=== PATIENT | female | born 1935 | race Caucasian/White ===

== ENCOUNTER 2017-08-19 08:55 | Inpatient (IN) | payer OTHER, BC ==
--- NOTE | 2017-08-19 10:02 | PDOC ---
History of Present Illness - General Chief Complaint: Shortness of Breath Stated Complaint: SOB Time Seen by Provider: 08/19/17 09:01 History Source: Patient Exam Limitations: No Limitations - History of Present Illness Initial Comments: 08/19/17 10:02 The patient is an 81F with a PMH of HTN, a-fib on eliquis, and HLD who presents to the ER with complaints of SOB. The patient states that since yesterday, she' s felt very short of breath both on exertion and laying down. She says this is new for her and has not happened in the past. She denies any CP, fever, chills, but states that the shortness of breath is associated with abdominal pain, which is located in her epigastrium and does not radiate. She also says she's had a decrease in her appetite and feels mildly nauseous but has not vomited. Past History - Past Medical History Allergies/Adverse Reactions: Allergies Allergy/AdvReac Type Severity Reaction Status Date / Time No Known Drug Allergies Allergy Verified 08/19/17 09:01 Home Medications: Ambulatory Orders Quinapril HCl [Accupril -] 10 mg PO DAILY 01/27/13 Apixaban [Eliquis -] 5 mg PO BID 08/19/17 Carvedilol 3.125 mg PO BID 08/19/17 Cholecalciferol (Vitamin D3) [Vitamin D3 -] 2,000 unit PO DAILY 08/19/17 Cyanocobalamin [Vitamin B12 -] 1,000 mcg PO DAILY 08/19/17 Folic Acid/Multivit,Iron,[place] [Centrum Chewable Tablet] 1 each PO DAILY Lovastatin 10 mg PO HS 08/19/17 Anemia: No Asthma: No Cancer: Yes (UTERINE CANCER) Cardiac Disorders: Yes (ATRIAL FIBRILLATION) CVA: No COPD: No CHF: No DVT: No Dementia: No Diabetes: Yes (LATENT DM) GI Disorders: No Disorders: No HTN: Yes Hypercholesterolemia: Yes Liver Disease: No Seizures: No Thyroid Disease: No - Surgical History Abdominal Surgery: No Appendectomy: No Cardiac Surgery: No Cholecystectomy: Yes Lung Surgery: No Neurologic Surgery: No Orthopedic Surgery: Yes (HIP REPLACEMENT RT) - Suicide/Smoking/Psychosocial Hx Smoking History: Never smoked Have you smoked in the past 12 months: No Information on smoking cessation initiated: No Hx Alcohol Use: No Drug/Substance Use Hx: No Substance Use Type: None Hx Substance Use Treatment: No Review of Systems - Review of Systems Able to Perform ROS?: Yes Comments:: 08/19/17 10:11 GENERAL/CONSTITUTIONAL: No fever or chills. No weakness. HEAD, EYES, EARS, NOSE AND THROAT: No change in vision. No ear pain or discharge. No sore throat. CARDIOVASCULAR: No chest pain, palpitations, or lightheadedness. RESPIRATORY: Positive for shortness of breath and orthopnea. No cough, wheezing , or hemoptysis. GASTROINTESTINAL: Positive for nausea and abdominal pain. No vomiting, diarrhea or constipation. GENITOURINARY: No dysuria, frequency, hematuria, or change in urination. MUSCULOSKELETAL: No joint or muscle swelling or pain. No neck or back pain. SKIN: No rash or lesions. NEUROLOGIC: No headache, numbness, tingling, weakness, loss of consciousness, or change in strength/sensation. ENDOCRINE: No increased thirst. No abnormal weight change. HEMATOLOGIC/LYMPHATIC: No anemia, easy bleeding, or history of blood clots. ALLERGIC/IMMUNOLOGIC: No hives or skin allergy. Is the patient limited Bengali proficient: No *Physical Exam - Vital Signs Last Vital Signs Temp Pulse Resp BP Pulse Ox 98.3 F 103 H 22 154/113 95 08/19/17 09:01 08/19/17 09:01 08/19/17 09:01 08/19/17 09:01 08/19/17 09:01 - Physical Exam Comments: 08/19/17 10:12 GENERAL: Well developed, well nourished. Awake and alert. No acute distress. HEENT: Normocephalic, atraumatic. Hearing grossly normal. Moist mucous membranes. PERRLA, EOMI. No conjunctival pallor. Sclera are non-icteric. NECK: Supple. Full ROM. No JVD. CARDIOVASCULAR: Regular rate and rhythm. No murmurs, rubs, or gallops. PULMONARY: No evidence of respiratory distress. Lungs clear to auscultation bilaterally. No wheezing, rales or rhonchi. ABDOMINAL: Soft. Non-tender. Non-distended. No rebound or guarding. GENITOURINARY: No CVA tenderness bilaterally. MUSCULOSKELETAL: Normal range of motion at all joints. No bony deformities or tenderness. EXTREMITIES: No cyanosis. No clubbing. No edema. No calf tenderness. SKIN: Warm and dry. Normal capillary refill. No rashes. No jaundice. NEUROLOGICAL: Alert, awake, appropriate. Cranial nerves 2-12 intact. Normal speech. Gait is normal without ataxia. PSYCHIATRIC: Cooperative. Good eye contact. Appropriate mood and affect. ED Treatment Course - LABORATORY CBC & Chemistry Diagram: 08/19/17 10:45 08/19/17 10:45 - RADIOLOGY Radiology Studies Ordered: Category Date Time Status CHEST X-RAY PORTABLE* [RAD] Stat Radiology 08/19/17 09:58 Ordered Medical Decision Making - Medical Decision Making 08/19/17 10:13 The patient is an 81F with a PMH of HTN, HLD, a-fib on eliquis, who presents to the ER with complaints of SOB. She had a negative exam except for trace edema in her legs, no unilateral calf swelling but I am still concerned for PE vs CHF as the patient has LEDBETTER and orthopnea and is not an active person. Pending labs and imaging. Will monitor closely. 08/19/17 11:55 Labs WNL except for elevated BNP. CXR showing questionable vascular congestion. Paged Dr. Chavis for recs. 08/19/17 12:27 Flu negative. I have spoken to Dr. Chavis who suggests looking for sources of infection. CXR and UA negative for infectious process. Giving 40 IV lasix for symptomatic treatment and will reassess. 08/19/17 19:09 CTAP reveals b/l pleural effusions. Dr. Yusuf accepts admission for a med/surg bed. *DC/Admit/Observation/Transfer Diagnosis at time of Disposition: CHF (congestive heart failure) Qualifiers: Congestive heart failure type: unspecified Congestive heart failure chronicity : unspecified Qualified Code(s): I50.9 - Heart failure, unspecified - Discharge Dispostion Condition at time of disposition: Stable Admit: Yes - Referrals Referrals: Endy Pantoja MD [Primary Care Provider] - - Patient Instructions - Post Discharge Activity
--- NOTE | 2017-08-19 10:07 | PDOC ---
Attending Attestation - Resident Resident Name: Seven Dang - ED Attending Attestation I have performed the following: I have examined & evaluated the patient, The case was reviewed & discussed with the resident, I agree w/resident's findings & plan, Exceptions are as noted - HPI HPI: 08/19/17 10:21 81y F hx of afib on eqilquis, htn, hld, presents with a few days of sob since yesterday, worse with exertion. Pt denies cp, but endorses a mild abd pain thathas been going on for a few weeks blue tis worse with eating. She has had a poor appetitie the past few weeks. she also endorses weightloss over the past year or so 145-130lb. Pt endorses some nausea but without vomiting. denies any dysuria, hematuria, diarrhea, bpr, melena. GENERAL: The patient is awake, alert, and fully oriented, Nontoxic - in no acute distress. HEAD: Normocephalic, atraumatic. EYES: extraocular movements intact, sclera anicteric, conjunctiva clear. ENT: Normal voice, Moist mucous membranes. NECK: Normal range of motion, supple LUNGS: Breath sounds equal, clear to auscultation bilaterally. No wheezes, no rhonchi, no rales. HEART: irregular ABDOMEN: Soft, nontender, normoactive bowel sounds. No guarding, no rebound. . No CVA tenderness EXTREMITIES: Normal range of motion, no edema. neg homans sign NEUROLOGICAL: No facial assymetry, Normal speech, PSYCH: Normal mood, normal affect. SKIN: Warm, Dry, normal turgor, ddx - pna, chf, acs, pancreatitis, ?pe (though less likely as she is already on ac) will ck labs, cxr, ekg will put pt on cardiac tech will reassess - Physicial Exam PE: 08/20/17 08:09 see above - Medical Decision Making 08/19/17 13:17 elevated BNP labs otherwise unremarkble will give a dose of lasix will erass 08/19/17 15:21 pt still feeling generally weak and sob will kim to obs for further management Heart Score/ECG Review - ECG Impressions Comment:: 08/19/17 13:19 Twelve-lead EKG was performed and reviewed by me. irregularly iregular rate of 92 LAFB
[2017-08-19 10:58] LABS: BASO % 0.8 % (0-2.0); EOS % 0.5 % (0-4.5); HEMATOCRIT 43.7 % (32.4-45.2); HEMOGLOBIN 13.9 GM/dL (10.7-15.3); LYMPH % 12.4 % (8-40); MCHC 31.8 g/dl (32.0-36.0); MEAN CELL VOLUME 88.1 fl (80-96); MEAN PLT VOLUME 8.3 fl (7.5-11.1); MONO % 7.4 % (3.8-10.2); NEUT % 78.9 % (42.8-82.8); PLATELET COUNT 219 K/MM3 (134-434); RBC 4.95 M/mm3 (3.60-5.2); RDW 15.7 % (11.6-15.6); WHITE BLOOD COUNT 8.9 K/mm3 (4.0-10.0)
[2017-08-19 11:02] LABS: URINE APPEARANCE CLEAR; URINE BILIRUBIN NEGATIVE (NEGATIVE); URINE BLOOD 2+ (NEGATIVE); URINE COLOR STRAW; URINE GLUCOSE (UA) NEGATIVE (NEGATIVE); URINE KETONE NEGATIVE (NEGATIVE); URINE LEUK ESTERASE NEGATIVE (NEGATIVE); URINE NITRITE NEGATIVE (NEGATIVE); URINE PROTEIN NEGATIVE (NEGATIVE); URINE UROBILINOGEN NEGATIVE mg/dL (0.2-1.0)
[2017-08-19 11:11] LABS: INR 1.66 (0.82-1.09); PROTHROMBIN TIME (PATIENT) 18.8 SEC (9.98-11.88)
[2017-08-19 11:14] LABS: ACTIVATED PTT 37.2 SECONDS (26.9-34.4)
[2017-08-19 11:17] LABS: ALBUMIN 3.8 g/dl (3.4-5.0); ANION GAP 9 (8-16); BILIRUBIN,TOTAL 1.2 mg/dL (0.2-1.0); BLOOD UREA NITROGEN 18 mg/dL (7-18); CALCIUM 9.6 mg/dL (8.5-10.1); CHLORIDE 108 mmol/L (98-107); CO2 24 mmol/L (21-32); GLUCOSE,RANDOM 116 mg/dL (74-106); POTASSIUM 4.1 mmol/L (3.5-5.1); SGOT/AST 26 U/L (15-37); SGPT/ALT 29 U/L (12-78); SODIUM 141 mmol/L (136-145); TOT PROT 8.2 g/dl (6.4-8.2)
[2017-08-19 11:20] LABS: ALK PHOS 82 U/L (45-117); N-TERMINAL BNP 5557.39 pg/ml (5-450)
[2017-08-19 11:23] LABS: EPI CELLS RARE /HPF (FEW)
[2017-08-19 11:26] LABS: LIPASE 222 U/L (73-393)
[2017-08-19] MEDS ORDERED: FUROSEMIDE 40 MG/4 ML INJECTABLE VIAL IVPUSH ONE (11:51)
--- NOTE | 2017-08-19 12:36 | EKG ---
Test Reason : Blood Pressure : / mmHG Vent. Rate : 092 BPM Atrial Rate : 094 BPM P-R Int : 000 ms QRS Dur : 092 ms QT Int : 374 ms P-R-T Axes : 000 -46 066 degrees QTc Int : 462 ms ATRIAL FIBRILLATION WITH PREMATURE VENTRICULAR OR ABERRANTLY CONDUCTED COMPLEXES LEFT ANTERIOR FASCICULAR BLOCK ABNORMAL ECG WHEN COMPARED WITH ECG OF 13-NOV-2007 07:16, ATRIAL FIBRILLATION HAS REPLACED SINUS RHYTHM VENT. RATE HAS INCREASED BY 30 BPM LEFT ANTERIOR FASCICULAR BLOCK IS NOW PRESENT T WAVE VARIATION Confirmed by JASMINE ALEJANDRO MD ([id number]) on 08/19/2017 12:36:17 PM Referred By: Confirmed By:JASMINE ALEJANDRO MD
[2017-08-19] MEDS ORDERED: FUROSEMIDE 40 MG/4 ML INJECTABLE VIAL ONE (12:37)
--- NOTE | 2017-08-19 19:40 | PN ---
Teaching Attending Note Name of Resident: Kenan Sidhu ATTENDING PHYSICIAN STATEMENT I saw and evaluated the patient. I reviewed the resident's note and discussed the case with the resident. I agree with the resident's findings and plan as documented. SUBJECTIVE: 81 F with afib on Eliquis, htn, hld, who presents with shortness of breath since yesterday. Shortness of breath is worse with exertion. Notes clary- epigastric abdominal pain, burning in nature. Also notes dyspnea on exertion. Denies any chest pain or pressure. OBJECTIVE: Physical: Vital Signs Period Temp Pulse Resp BP Sys/Faria Pulse Ox Last 24 Hr 98.3 F-99.2 F 93-103 20-24 134-167/76-113 95-96 GEN: NAD, resting in bed, AA0X3 HEENT: NCAT, PERRL, throat without erythema or exudates CARD: RRR S1, S2 RESP: Bilateral crackles at bases ABD: BSx4, NTD to palpation EXT: +2 Pitting edema CBCD WBC 8.9 K/mm3 (4.0-10.0) 08/19/17 10:45 RBC 4.95 M/mm3 (3.60-5.2) 08/19/17 10:45 Hgb 13.9 GM/dL (10.7-15.3) D 08/19/17 10:45 Hct 43.7 % (32.4-45.2) D 08/19/17 10:45 MCV 88.1 fl (80-96) 08/19/17 10:45 MCHC 31.8 g/dl (32.0-36.0) L 08/19/17 10:45 RDW 15.7 % (11.6-15.6) H 08/19/17 10:45 Plt Count 219 K/MM3 (134-434) D 08/19/17 10:45 MPV 8.3 fl (7.5-11.1) 08/19/17 10:45 CMP Sodium 141 mmol/L (136-145) 08/19/17 10:45 Potassium 4.1 mmol/L (3.5-5.1) 08/19/17 10:45 Chloride 108 mmol/L (98-107) H 08/19/17 10:45 Carbon Dioxide 24 mmol/L (21-32) 08/19/17 10:45 Anion Gap 9 (8-16) 08/19/17 10:45 BUN 18 mg/dL (7-18) 08/19/17 10:45 Creatinine 1.0 mg/dL (0.55-1.02) 08/19/17 10:45 Creat Clearance w eGFR 53.08 (>60) 08/19/17 10:45 Random Glucose 116 mg/dL (74-106) H 08/19/17 10:45 Calcium 9.6 mg/dL (8.5-10.1) 08/19/17 10:45 Total Bilirubin 1.2 mg/dL (0.2-1.0) H 08/19/17 10:45 AST 26 U/L (15-37) 08/19/17 10:45 ALT 29 U/L (12-78) 08/19/17 10:45 Alkaline Phosphatase 82 U/L (45-117) 08/19/17 10:45 Total Protein 8.2 g/dl (6.4-8.2) 08/19/17 10:45 Albumin 3.8 g/dl (3.4-5.0) 08/19/17 10:45 CARDIAC ENZYMES Creatine Kinase 47 IU/L (26-192) 08/19/17 15:11 Troponin I 0.03 ng/ml (0.00-0.05) 08/19/17 15:11 CT ABD/PELVIS: Small- moderate R. Sided small L. sided plueral effusions, Cardiomegaly, small- moderate umbilical hernia containing fat, small stable bilateral adenomas Ambulatory Orders Quinapril HCl [Accupril -] 10 mg PO DAILY 01/27/13 Apixaban [Eliquis -] 5 mg PO BID 08/19/17 Carvedilol 3.125 mg PO BID 08/19/17 Cholecalciferol (Vitamin D3) [Vitamin D3 -] 2,000 unit PO DAILY 08/19/17 Cyanocobalamin [Vitamin B12 -] 1,000 mcg PO DAILY 08/19/17 Folic Acid/Multivit,Iron,[employer] [Centrum Chewable Tablet] 1 each PO DAILY Lovastatin 10 mg PO HS 08/19/17 ASSESSMENT AND PLAN: 81 F with afib on Eliquis, htn, hld, who presents with shortness of breath since yesterday, being admitted for CHF Exacerbation 1.) Acute Congestive Heart Failure - Possibly Systolic- Need Echo to confirm - Daily weight - Strict I/O - Coreg - Echo - Trend Trop/Ekg - Fluid/Na restrict - Lasix IV - Cardio consult 2.) Afib - C/W Eliquis - Coreg 3.) HTN - C/W Home meds 4.) HLD - C/W Statin 5.) Dvt PPx - On Eliquis Place in Med-Sx
[2017-08-19] MEDS ORDERED: PANTOPRAZOLE SODIUM 40 MG VIAL ONE (21:06)
--- NOTE | 2017-08-19 21:08 | HP ---
CHIEF COMPLAINT: SOB PCP: Kit Cardio: Partha HISTORY OF PRESENT ILLNESS: Pt is an 81 y/o F with PMH TN, HLD, AF (elequis), latent DM who presented to ED with 2 days of sob. Pt states she has ad omalley which is resolved by rest. She also states she cannot lay flat for the same time period because of sob. Pt states she went to her die repair on Mon and had her medications adjusted and had an echo done. Among those changes, her lasix were discontinued. Pt also states she has had epigastric pain for the last several weeks. She says it hurst all the time, but is especially bad when she eats. She has been avoiding food and has subsequently lost 30 lbs. ER course was notable for: (1) labs unremarkable (2) CXR with effusions, CT with b/l pleural effusions and cardiomegaly (3) Recent Travel: denies PAST MEDICAL HISTORY: HTN, HLD, Afib (elequis), latent DM, Uterine CA PAST SURGICAL HISTORY: hysterectomy, cholecystectomy, total hip Social History: Smoking: denies Alcohol: denies Drugs: denies Family History: denies Allergies No Known Drug Allergies Allergy (Verified 08/19/17 09:01) HOME MEDICATIONS: Home Medications Medication Instructions Recorded Quinapril HCl [Accupril -] 10 mg PO DAILY 01/27/13 Apixaban [Eliquis -] 5 mg PO BID 08/19/17 Carvedilol 3.125 mg PO BID 08/19/17 Cholecalciferol (Vitamin D3) 2,000 unit PO DAILY 08/19/17 [Vitamin D3 -] Cyanocobalamin [Vitamin B12 -] 1,000 mcg PO DAILY 08/19/17 Folic Acid/Multivit,Iron,[employer] Apprentice 1 each PO DAILY 08/19/17 [Centrum Chewable Tablet] Lovastatin 10 mg PO HS 08/19/17 REVIEW OF SYSTEMS CONSTITUTIONAL: weight loss Absent: fever, chills, diaphoresis, generalized weakness, HEENT: Absent: rhinorrhea, throat pain, throat swelling, difficulty swallowing, s CARDIOVASCULAR: palpitations, irregular heart rate Absent: chest pain, syncope, , lightheadedness, peripheral edema RESPIRATORY: shortness of breath, dyspnea with exertion Absent: cough, orthopnea, wheezing GASTROINTESTINAL: abdominal pain Absent: , abdominal distension, nausea, vomiting, diarrhea, GENITOURINARY: Absent: dysuria, frequency, urgency, hesitancy, MUSCULOSKELETAL: arthralgia Absent: myalgia, , joint swelling, back pain, neck pain SKIN: Absent: rash, itching, pallor HEMATOLOGIC/IMMUNOLOGIC: Absent: easy bleeding, easy bruising, lymphadenopathy, frequent infections ENDOCRINE: Absent: unexplained weight gain, unexplained weight loss, heat intolerance, cold intolerance NEUROLOGIC: Absent: headache, focal weakness or paresthesias, dizziness, unsteady gait, seizure, mental status changes, bladder or bowel incontinence PSYCHIATRIC: Absent: anxiety, depression, suicidal or homicidal ideation, hallucinations. PHYSICAL EXAMINATION Vital Signs - 24 hr 08/19/17 08/19/17 08/19/17 09:01 11:11 12:40 Temperature 98.3 F 99.2 F Pulse Rate 103 H Pulse Rate [ 96 H Right Radial] Respiratory 22 24 Rate Blood Pressure 154/113 Blood Pressure 167/89 [Left Arm] O2 Sat by Pulse 95 96 Oximetry (%) 08/19/17 08/19/17 12:50 18:02 Temperature 98.6 F Pulse Rate Pulse Rate [ 93 H 95 H Right Radial] Respiratory 24 20 Rate Blood Pressure Blood Pressure 134/76 151/82 [Left Arm] O2 Sat by Pulse 96 95 Oximetry (%) GENERAL: Awake, alert, and fully oriented, in no acute distress. HEAD: Normal with no signs of trauma. EYES: Pupils equal, round and reactive to light, extraocular movements intact, sclera anicteric, conjunctiva clear. No lid lag. EARS, NOSE, THROAT: oropharynx clear without exudates. Moist mucous membranes. NECK: Normal range of motion, supple without lymphadenopathy, JVD, or masses. Heart murmur radiation LUNGS: Breath sounds equal, clear to auscultation bilaterally. No wheezes, and no crackles. No accessory muscle use. HEART: Regular rate and rhythm, normal S1 and S2 with systolic blowing 3/6 murmur at RUSB, rub or gallop. ABDOMEN: Soft, nontender, not distended, normoactive bowel sounds, no guarding, no rebound, no masses. No hepatomegaly or splenomegaly. MUSCULOSKELETAL: Normal range of motion at all joints. No bony deformities or tenderness. No CVA tenderness. UPPER EXTREMITIES: 2+ pulses, warm, well-perfused. No cyanosis. No clubbing. No peripheral edema. LOWER EXTREMITIES: 2+ pulses, warm, well-perfused. No calf tenderness. 1+ peripheral edema. NEUROLOGICAL: Cranial nerves II-XII intact. Normal speech. PSYCHIATRIC: Cooperative. Good eye contact. Appropriate mood and affect. SKIN: Warm, dry, normal turgor, no rashes or lesions noted, normal capillary refill. Laboratory Results - last 24 hr 08/19/17 08/19/17 08/19/17 10:45 10:45 10:45 WBC 8.9 RBC 4.95 Hgb 13.9 D Hct 43.7 D MCV 88.1 MCH 28.0 MCHC 31.8 L RDW 15.7 H Plt Count 219 D MPV 8.3 Neutrophils % 78.9 Lymphocytes % 12.4 D Monocytes % 7.4 Eosinophils % 0.5 Basophils % 0.8 PT with INR 18.80 H INR 1.66 H D PTT (Actin FS) 37.2 H Sodium 141 Potassium 4.1 Chloride 108 H Carbon Dioxide 24 Anion Gap 9 BUN 18 Creatinine 1.0 Creat Clearance w eGFR 53.08 Random Glucose 116 H Calcium 9.6 Total Bilirubin 1.2 H AST 26 ALT 29 Alkaline Phosphatase 82 Creatine Kinase 53 Troponin I 0.03 B-Natriuretic Peptide 5557.39 H Total Protein 8.2 Albumin 3.8 Lipase 222 Urine Color Urine Appearance Urine pH Ur Specific [place] Urine Protein Urine Glucose (UA) Urine Ketones Urine Blood Urine Nitrite Urine Bilirubin Urine Urobilinogen Ur Leukocyte Esterase Urine WBC (Auto) Urine RBC (Auto) Ur Epithelial Cells 08/19/17 08/19/17 10:49 15:11 WBC RBC Hgb Hct MCV MCH MCHC RDW Plt Count MPV Neutrophils % Lymphocytes % Monocytes % Eosinophils % Basophils % PT with INR INR PTT (Actin FS) Sodium Potassium Chloride Carbon Dioxide Anion Gap BUN Creatinine Creat Clearance w eGFR Random Glucose Calcium Total Bilirubin AST ALT Alkaline Phosphatase Creatine Kinase 47 Troponin I 0.03 B-Natriuretic Peptide Total Protein Albumin Lipase Urine Color Straw Urine Appearance Clear Urine pH 6.0 Ur Specific [place] 1.004 Urine Protein Negative Urine Glucose (UA) Negative Urine Ketones Negative Urine Blood 2+ H Urine Nitrite Negative Urine Bilirubin Negative Urine Urobilinogen Negative Ur Leukocyte Esterase Negative Urine WBC (Auto) <1 Urine RBC (Auto) 2 Ur Epithelial Cells Rare ASSESSMENT/PLAN: Pt is a pleasant 81 y/o F with PMH HTN, HLD, AF on elequis who presents with signs and symptoms of CHF exacerbation following discontinuation of her lasix. #CHF -daily weights -I/O -Pt states she had an echo at die repair's office on Sat. Cardio consulted -Trop neg x 2 -Na controlled diet #Afib -elequis -coreg #HTN -c/w quinipril #HLD -c/w statin #FEN -fluid restriction -lytes wnl -Na controlled diet #Dispo -Admit to Tele Kenan Sidhu MD PGY-1 IM Visit type - Emergency Visit Emergency Visit: Yes ED Registration Date: 08/19/17 Care time: The patient presented to the Emergency Department on the above date and was hospitalized for further evaluation of their emergent condition. - New Patient This patient is new to me today: Yes Date on this admission: 08/19/17 - Critical Care Critical Care patient: No
[2017-08-19] MEDS: PANTOPRAZOLE SODIUM 40 MG VIAL IVPUSH SCH (21:18)
[2017-08-19] MEDS ORDERED: PATIENT'S OWN MEDICATION (NON-FORMULARY) (Lovastatin [Lovastatin] 10 MG) PO SCH (22:00)
[2017-08-19] MEDS ORDERED: APIXABAN 5 MG TABLET PO SCH (22:00)
[2017-08-19] MEDS ORDERED: CARVEDILOL 3.125 MG TABLET (FP) ONE (22:25)
[2017-08-19] MEDS: CARVEDILOL 3.125 MG TABLET (FP) PO SCH (22:38)
[2017-08-20] MEDS ORDERED: APIXABAN 5 MG TABLET PO SCH (00:10)
[2017-08-20] MEDS: APIXABAN 5 MG TABLET PO SCH ×3 (00:30→21:24)
[2017-08-20 00:48] VITALS: BMI 23.4
[2017-08-20] MEDS ORDERED: METOPROLOL TARTRATE 5 MG/5 ML VIAL IVPUSH ONE (04:20)
[2017-08-20] MEDS ORDERED: CARVEDILOL 3.125 MG TABLET (FP) PO ONE (04:29)
[2017-08-20 08:04] LABS: BASO % 0.9 % (0-2.0); HEMOGLOBIN 13.1 GM/dL (10.7-15.3); LYMPH % 12.3 % (8-40); MCH 28.5 pg (25.7-33.7); MCHC 32.7 g/dl (32.0-36.0); MEAN PLT VOLUME 8.8 fl (7.5-11.1); NEUT % 75.8 % (42.8-82.8); PLATELET COUNT 216 K/MM3 (134-434); RBC 4.59 M/mm3 (3.60-5.2); RDW 15.6 % (11.6-15.6); WHITE BLOOD COUNT 8.1 K/mm3 (4.0-10.0)
[2017-08-20 08:13] LABS: CHLORIDE 106 mmol/L (98-107); POTASSIUM 3.6 mmol/L (3.5-5.1); SODIUM 142 mmol/L (136-145)
[2017-08-20 08:17] LABS: ALBUMIN 3.5 g/dl (3.4-5.0); ALK PHOS 75 U/L (45-117); ANION GAP 10 (8-16); BILIRUBIN,TOTAL 1.3 mg/dL (0.2-1.0); BLOOD UREA NITROGEN 21 mg/dL (7-18); CO2 26 mmol/L (21-32); GLUCOSE,RANDOM 106 mg/dL (74-106); MAGNESIUM 2.1 mg/dL (1.8-2.4); PHOSPHOROUS 3.3 mg/dL (2.5-4.9); SGOT/AST 22 U/L (15-37); SGPT/ALT 23 U/L (12-78); TOT PROT 7.2 g/dl (6.4-8.2)
[2017-08-20] MEDS: CHOLECALCIFEROL (VITAMIN D3) 1,000 UNIT TABLET (FP) PO SCH (09:18)
[2017-08-20] MEDS: PANTOPRAZOLE SODIUM 40 MG VIAL IVPUSH SCH (09:18)
[2017-08-20] MEDS: CYANOCOBALAMIN 1,000 MCG TABLET (FP) PO SCH (09:18)
[2017-08-20] MEDS: MULTIVITAMINS THER W-MINERALS COMBO TABLET (FP) PO SCH (09:19)
[2017-08-20] MEDS: CARVEDILOL 3.125 MG TABLET (FP) PO SCH ×2 (09:19→21:48)
[2017-08-20] MEDS ORDERED: POTASSIUM CHLORIDE TABS 20 MEQ TABLET.ER (FP) PO ONE ×2 (10:23→12:45)
[2017-08-20] MEDS ORDERED: KCL 10 MEQ IVPB 10 MEQ/100 ML INFUS.BAG IVPB SCH (10:30)
--- NOTE | 2017-08-20 10:46 | PN ---
Progress Note, Physician Chief Complaint: pt sitting in chair in no acute distress. Reports mild sob, better than yesterday. Pt reports epigastic pain x 2 weeks with poor appetite x 2 months and weightloss >10lbs. - Current Medication List Current Medications: Active Medications Apixaban (Eliquis -) 5 mg PO BID [facility] Last Admin: 08/20/17 09:18 Dose: 5 mg Carvedilol (Coreg -) 3.125 mg PO BID [facility] Last Admin: 08/20/17 09:19 Dose: 3.125 mg Cholecalciferol (Vitamin D3 -) 2,000 unit PO DAILY [facility] Last Admin: 08/20/17 09:18 Dose: 2,000 unit Cyanocobalamin (Vitamin B12 -) 1,000 mcg PO DAILY [facility] Last Admin: 08/20/17 09:18 Dose: 1,000 mcg Multivitamins/Minerals (Theragran-M) 1 each PO DAILY [facility] Last Admin: 08/20/17 09:19 Dose: 1 each Non-Formulary Medication (Lovastatin [Lovastatin]) 10 mg PO [facility] Pantoprazole Sodium (Protonix Iv) 40 mg IVPUSH DAILY [facility] Last Admin: 08/20/17 09:18 Dose: 40 mg Potassium Chloride (K-Dur -) 40 meq PO ONCE ONE Stop: 08/20/17 10:24 Quinapril HCl (Accupril -) 10 mg PO DAILY [facility] - Objective Vital Signs: Vital Signs Temperature 98 F 08/20/17 06:00 Pulse Rate 89 08/20/17 06:00 Respiratory Rate 20 08/20/17 06:00 Blood Pressure 140/67 08/20/17 06:53 O2 Sat by Pulse Oximetry (%) 93 L 08/19/17 23:44 Constitutional: Yes: No Distress, Calm Cardiovascular: Yes: Pulse Irregular, S1, S2 Respiratory: Yes: Regular, Cough, Diminished, Rales (bibasilar) Gastrointestinal: Yes: WNL, Normal Bowel Sounds, Soft. No: Distention, Tenderness Edema: No Neurological: Yes: WNL, Alert, Oriented Psychiatric: Yes: WNL, Alert, Oriented Labs: CBC, BMP 08/20/17 06:30 08/20/17 06:30 INR, PTT INR 1.66 (0.82-1.09) H D 08/19/17 10:45 - ....Imaging Chest X-ray: Report Reviewed Cat Scan: Report Reviewed EKG: Report Reviewed Problem List - Problems (1) CHF (congestive heart failure) Assessment/Plan: chronic, diastolic, reports sob has improved today, followed by outpt lasix 40mg started daily weights Code(s): I50.9 - HEART FAILURE, UNSPECIFIED Qualifiers: Congestive heart failure type: diastolic Congestive heart failure chronicity: acute on chronic Qualified Code(s): I50.33 - Acute on chronic diastolic (congestive) heart failure (2) Pleural effusion Assessment/Plan: b/l small pleural effusions chest xray today shows mildly increasing right pleur effusion continue lasix 40mg daily per cardiology Code(s): J90 - PLEURAL EFFUSION, NOT ELSEWHERE CLASSIFIED (3) Abdominal pain Assessment/Plan: pt reports epigastric pain x 2 weeks, occurs after eating but persistent, + weightloss>10lbs and poor appetite over the last few months, denies N/V/D CT unremarkable continue protonix will monitor Code(s): R10.9 - UNSPECIFIED ABDOMINAL PAIN Qualifiers: Abdominal location: epigastric Qualified Code(s): R10.13 - Epigastric pain (4) HTN (hypertension) Assessment/Plan: stable continue home meds Code(s): I10 - ESSENTIAL (PRIMARY) HYPERTENSION Qualifiers: Hypertension type: essential hypertension Qualified Code(s): I10 - Essential (primary) hypertension (5) Hyperlipidemia Assessment/Plan: stable continue home meds Code(s): E78.5 - HYPERLIPIDEMIA, UNSPECIFIED Qualifiers: Hyperlipidemia type: pure hypercholesterolemia Qualified Code(s): E78.00 - Pure hypercholesterolemia, unspecified; E78.0 - Pure hypercholesterolemia (6) Afib Assessment/Plan: chronic, stable, coagulated on eliquis 2.5mg bid cardiology following Code(s): I48.91 - UNSPECIFIED ATRIAL FIBRILLATION Qualifiers: Atrial fibrillation type: chronic Qualified Code(s): I48.2 - Chronic atrial fibrillation (7) Mitral regurgitation and aortic stenosis Assessment/Plan: valvular disease coagulated on eliquis cardiology following Code(s): I08.0 - RHEUMATIC DISORDERS OF BOTH MITRAL AND AORTIC VALVES
--- NOTE | 2017-08-20 12:34 | CON.CARD ---
Cardiology Consult (text) - Consultation Consultation Note: CC: sob/abd pain 81 yo with h/o diastolic/valvular HF, severe , mod ar, perm afib on eliquis/ coreg (eliquis recently decreased due to change in weight), varicose veins, htn , hl , gerd, oa who p/w sob/abdominal pain. Recently with decreasing torsemide requirement. had been on torsemide 20 mg daily --> decreased to QOD and then with persistently poor appetite/decreasing weights, improved LE edema, and slight worsening of Cr --> further decreased to weekly and prn. had uri last month and mild residual hoarseness but overall improved. sob had also improved, no decrease in exercise capacity. Now with acute worsening of sob, new orthopnea and worsening of abdominal discomfort over the past 3 days. + bloating and pain. - + fatigue, no fevers, - + oa with knee pain limiting ambulation. s/p lasix in ER. orthopnea improved this morning. pmhx/pshx: per hpi social hx: never smoker fam hx: brother with cad ros: per hpi Ambulatory Orders Quinapril HCl [Accupril -] 10 mg PO DAILY 01/27/13 Apixaban [Eliquis -] 2.5 mg PO BID 08/19/17 Carvedilol 3.125 mg PO BID 08/19/17 Cholecalciferol (Vitamin D3) [Vitamin D3 -] 2,000 unit PO DAILY 08/19/17 Cyanocobalamin [Vitamin B12 -] 1,000 mcg PO DAILY 08/19/17 Folic Acid/Multivit,Iron,Technical Support Intern [Centrum Chewable Tablet] 1 each PO DAILY Lovastatin 10 mg PO HS 08/19/17 Current Medications Apixaban (Eliquis -) 5 mg PO BID [facility] Last Admin: 08/20/17 09:18 Dose: 5 mg Carvedilol (Coreg -) 3.125 mg PO BID [facility] Last Admin: 08/20/17 09:19 Dose: 3.125 mg Cholecalciferol (Vitamin D3 -) 2,000 unit PO DAILY [facility] Last Admin: 08/20/17 09:18 Dose: 2,000 unit Cyanocobalamin (Vitamin B12 -) 1,000 mcg PO DAILY [facility] Last Admin: 08/20/17 09:18 Dose: 1,000 mcg Multivitamins/Minerals (Theragran-M) 1 each PO DAILY [facility] Last Admin: 08/20/17 09:19 Dose: 1 each Non-Formulary Medication (Lovastatin [Lovastatin]) 10 mg PO [facility] Pantoprazole Sodium (Protonix Iv) 40 mg IVPUSH DAILY [facility] Last Admin: 08/20/17 09:18 Dose: 40 mg Quinapril HCl (Accupril -) 10 mg PO DAILY [facility] Vital Signs - 24 hr 08/19/17 08/19/17 08/19/17 12:40 12:50 18:02 Temperature 98.6 F Pulse Rate Pulse Rate [ 96 H 93 H 95 H Right Radial] Respiratory 24 24 20 Rate Blood Pressure Blood Pressure 167/89 134/76 151/82 [Left Arm] O2 Sat by Pulse 96 96 95 Oximetry (%) 08/19/17 08/19/17 08/19/17 22:53 23:44 23:45 Temperature 97.6 F 97.7 F Pulse Rate 86 Pulse Rate [ 92 H Right Radial] Respiratory 20 20 Rate Blood Pressure 162/72 Blood Pressure 176/96 [Left Arm] O2 Sat by Pulse 95 93 L Oximetry (%) 08/20/17 08/20/17 08/20/17 00:06 02:11 04:00 Temperature 97.7 F Pulse Rate 86 74 96 H Pulse Rate [ Right Radial] Respiratory 20 20 20 Rate Blood Pressure 162/72 171/96 173/100 Blood Pressure [Left Arm] O2 Sat by Pulse Oximetry (%) 08/20/17 08/20/17 08/20/17 04:19 06:00 06:53 Temperature 98 F Pulse Rate 84 89 Pulse Rate [ Right Radial] Respiratory 20 20 Rate Blood Pressure 189/93 143/84 140/67 Blood Pressure [Left Arm] O2 Sat by Pulse Oximetry (%) 08/20/17 09:00 Temperature 98.4 F Pulse Rate 89 Pulse Rate [ Right Radial] Respiratory 18 Rate Blood Pressure 134/72 Blood Pressure [Left Arm] O2 Sat by Pulse Oximetry (%) Intake & Output 08/18/17 08/19/17 08/20/17 08/21/17 07:59 07:59 07:59 07:59 Intake Total 600 Balance 600 Weight 119 lb 11.2 oz nad, calm jvd flat, neck supple trace bibasilar dullness, nl effort irregularly irregular nl s1, s2 2/6 murmur at sternal border with radiation throughout precordium + bs soft nt nd ext with trace edema, no c/c + varicosities aaox3 no jaundice, diaphoresis CBC, BMP 08/20/17 06:30 08/20/17 06:30 Laboratory Tests 08/19/17 08/19/17 08/20/17 10:45 15:11 06:30 Magnesium 2.1 Total Bilirubin 1.3 H AST 22 ALT 23 Alkaline Phosphatase 75 Creatine Kinase 53 47 Troponin I 0.03 0.03 B-Natriuretic Peptide 5557.39 H Albumin 3.5 Lipase 222 EKG: afib with pvc's. no acute ischemic changes. ct scan images and report reviewed : + bilateral pleural effusions. see emr for full details Recent office echo done last month with progression to severe (from mod). 81 yo with h/o diastolic/valvular HF, severe , mod ar, perm afib on eliquis/ coreg (eliquis recently decreased due to change in weight), varicose veins, htn , hl , gerd, oa who p/w sob/abdominal pain. diastolic/valvular HF/severe /mod AR - had recently decreased diuretic dose in setting of weight loss and poor po intake, but now with sx's of overload and evidence of bilateral pleural effusion on ct scan. Will continue diuresis with lasix 40 mg iV daily. dailly weights, bmp, i/o's - recent progression of as to severe and now also sx. Have had multiple discussions with patient regarding TAVR evaluation. patient will continue to consider but currently not ready. perm afib - recently decreased eliquis dose to 2.5 mg bid b/c weight had dropped. Adjust dose here based on weight. - con't rate control with coreg. may need to uptitrate dose. htn - coreg, quinapril, may need uptitration as mentioned. hl - resume statin
[2017-08-20] MEDS: FUROSEMIDE 40 MG/4 ML INJECTABLE VIAL IVPUSH SCH (12:49)
[2017-08-20] MEDS: QUINAPRIL HCL 10 MG TABLET (FP) PO SCH (12:49)
[2017-08-21 08:13] LABS: HEMATOCRIT 39.3 % (32.4-45.2); MCH 28.6 pg (25.7-33.7); MCHC 33.2 g/dl (32.0-36.0); MEAN CELL VOLUME 86.4 fl (80-96); MEAN PLT VOLUME 8.4 fl (7.5-11.1); PLATELET COUNT 205 K/MM3 (134-434); RBC 4.55 M/mm3 (3.60-5.2); RDW 15.3 % (11.6-15.6); WHITE BLOOD COUNT 8.5 K/mm3 (4.0-10.0)
[2017-08-21 08:41] LABS: ANION GAP 10 (8-16); CALCIUM 8.9 mg/dL (8.5-10.1); CHLORIDE 103 mmol/L (98-107); CO2 28 mmol/L (21-32); POTASSIUM 3.7 mmol/L (3.5-5.1); SODIUM 141 mmol/L (136-145)
[2017-08-21 08:42] LABS: LIPASE 341 U/L (73-393)
[2017-08-21 08:44] LABS: BLOOD UREA NITROGEN 29 mg/dL (7-18); CREATININE 1.2 mg/dL (0.55-1.02); GLUCOSE,RANDOM 88 mg/dL (74-106); MAGNESIUM 2.1 mg/dL (1.8-2.4); PHOSPHOROUS 3.9 mg/dL (2.5-4.9)
[2017-08-21] MEDS ORDERED: PT OWN MED DRAWER 7, Y5N ONE (09:59)
[2017-08-21] MEDS: QUINAPRIL HCL 10 MG TABLET (FP) PO SCH (10:01)
[2017-08-21] MEDS: CHOLECALCIFEROL (VITAMIN D3) 1,000 UNIT TABLET (FP) PO SCH (10:02)
[2017-08-21] MEDS: APIXABAN 5 MG TABLET PO SCH (10:02)
[2017-08-21] MEDS: CARVEDILOL 3.125 MG TABLET (FP) PO SCH ×2 (10:02→22:26)
[2017-08-21] MEDS: CYANOCOBALAMIN 1,000 MCG TABLET (FP) PO SCH (10:02)
[2017-08-21] MEDS: FUROSEMIDE 40 MG/4 ML INJECTABLE VIAL IVPUSH SCH (10:02)
[2017-08-21] MEDS: PANTOPRAZOLE SODIUM 40 MG VIAL IVPUSH SCH (10:02)
[2017-08-21] MEDS: MULTIVITAMINS THER W-MINERALS COMBO TABLET (FP) PO SCH (10:02)
--- NOTE | 2017-08-21 10:43 | PN ---
Progress Note, Physician Chief Complaint: pt sitting in chair in no acute distress. Reports dyspnea with exertion and more fatigue today. Denies any chest pain, sob, n/v/d, abdominal pain - Current Medication List Current Medications: Active Medications Apixaban (Eliquis -) 5 mg PO BID [facility] Last Admin: 08/21/17 10:02 Dose: 5 mg Carvedilol (Coreg -) 3.125 mg PO BID [facility] Last Admin: 08/21/17 10:02 Dose: 3.125 mg Cholecalciferol (Vitamin D3 -) 2,000 unit PO DAILY [facility] Last Admin: 08/21/17 10:02 Dose: 2,000 unit Cyanocobalamin (Vitamin B12 -) 1,000 mcg PO DAILY [facility] Last Admin: 08/21/17 10:02 Dose: 1,000 mcg Furosemide (Lasix Injection -) 40 mg IVPUSH DAILY [facility] Last Admin: 08/21/17 10:02 Dose: 40 mg Multivitamins/Minerals (Theragran-M) 1 each PO DAILY [facility] Last Admin: 08/21/17 10:02 Dose: 1 each Non-Formulary Medication (Lovastatin [Lovastatin]) 10 mg PO [facility] Pantoprazole Sodium (Protonix Iv) 40 mg IVPUSH DAILY [facility] Last Admin: 08/21/17 10:02 Dose: 40 mg Quinapril HCl (Accupril -) 10 mg PO DAILY [facility] Last Admin: 08/21/17 10:01 Dose: 10 mg - Objective Vital Signs: Vital Signs Temperature 98 F 08/21/17 06:00 Pulse Rate 66 08/21/17 06:00 Respiratory Rate 18 08/21/17 06:00 Blood Pressure 136/74 08/21/17 06:00 O2 Sat by Pulse Oximetry (%) 96 08/20/17 21:00 Constitutional: Yes: No Distress, Calm Cardiovascular: Yes: Pulse Irregular, Murmur. No: Gallop, Rub Respiratory: Yes: WNL, Regular, CTA Bilaterally, SOB on Exertion. No: Rhonchi, SOB, Tachypnea, Wheezes Gastrointestinal: Yes: WNL, Normal Bowel Sounds, Soft. No: Distention, Tenderness Extremities: Yes: WNL Edema: Yes Edema: LLE: Trace, RLE: Trace Neurological: Yes: WNL, Alert, Oriented Psychiatric: Yes: WNL, Alert, Oriented Labs: CBC, BMP 02/07/18 06:45 08/21/17 06:45 INR, PTT INR 1.66 (0.82-1.09) H D 08/19/17 10:45 - ....Imaging Chest X-ray: Report Reviewed Problem List - Problems (1) CHF (congestive heart failure) Code(s): I50.9 - HEART FAILURE, UNSPECIFIED Qualifiers: Congestive heart failure type: diastolic Congestive heart failure chronicity: acute on chronic Qualified Code(s): I50.33 - Acute on chronic diastolic (congestive) heart failure (2) Pleural effusion Code(s): J90 - PLEURAL EFFUSION, NOT ELSEWHERE CLASSIFIED (3) Abdominal pain Code(s): R10.9 - UNSPECIFIED ABDOMINAL PAIN Qualifiers: Abdominal location: epigastric Qualified Code(s): R10.13 - Epigastric pain (4) HTN (hypertension) Code(s): I10 - ESSENTIAL (PRIMARY) HYPERTENSION Qualifiers: Hypertension type: essential hypertension Qualified Code(s): I10 - Essential (primary) hypertension (5) Hyperlipidemia Code(s): E78.5 - HYPERLIPIDEMIA, UNSPECIFIED Qualifiers: Hyperlipidemia type: pure hypercholesterolemia Qualified Code(s): E78.00 - Pure hypercholesterolemia, unspecified; E78.0 - Pure hypercholesterolemia (6) Afib Code(s): I48.91 - UNSPECIFIED ATRIAL FIBRILLATION Qualifiers: Atrial fibrillation type: permanent Qualified Code(s): I48.2 - Chronic atrial fibrillation (7) Mitral regurgitation and aortic stenosis Code(s): I08.0 - RHEUMATIC DISORDERS OF BOTH MITRAL AND AORTIC VALVES (8) Hypokalemia Code(s): E87.6 - HYPOKALEMIA (9) DVT prophylaxis Code(s): [id number] - Assessment/Plan (1) CHF (congestive heart failure) Assessment/Plan: acute on chronic, diastolic, reports sob only with exertion today, followed by outpt case discussed with iv lasix reduced to 20mg transition to po tomorrow depending on renal function and fluid status cardiology following daily weights low na diet Code(s): I50.9 - HEART FAILURE, UNSPECIFIED Qualifiers: Congestive heart failure type: diastolic Congestive heart failure chronicity: acute on chronic Qualified Code(s): I50.33 - Acute on chronic diastolic (congestive) heart failure (2) Pleural effusion Assessment/Plan: b/l small pleural effusions chest xray 08/20 shows mildly increasing right pleur effusion lasix 20mg daily per cardiology repeat chest xray tomorrow Code(s): J90 - PLEURAL EFFUSION, NOT ELSEWHERE CLASSIFIED (3) Abdominal pain Assessment/Plan: resolved CT unremarkable continue protonix will monitor Code(s): R10.9 - UNSPECIFIED ABDOMINAL PAIN Qualifiers: Abdominal location: epigastric Qualified Code(s): R10.13 - Epigastric pain (4) HTN (hypertension) Assessment/Plan: stable continue coreg, quinapril Code(s): I10 - ESSENTIAL (PRIMARY) HYPERTENSION Qualifiers: Hypertension type: essential hypertension Qualified Code(s): I10 - Essential (primary) hypertension (5) Hyperlipidemia Assessment/Plan: stable continue home meds Code(s): E78.5 - HYPERLIPIDEMIA, UNSPECIFIED Qualifiers: Hyperlipidemia type: pure hypercholesterolemia Qualified Code(s): E78.00 - Pure hypercholesterolemia, unspecified; E78.0 - Pure hypercholesterolemia (6) Afib Assessment/Plan: chronic, stable, coagulated on eliquis 2.5mg bid rate controlled on coreg cardiology following Code(s): I48.91 - UNSPECIFIED ATRIAL FIBRILLATION Qualifiers: Atrial fibrillation type: chronic Qualified Code(s): I48.2 - Chronic atrial fibrillation (7) Mitral regurgitation and aortic stenosis Assessment/Plan: valvular disease coagulated on eliquis cardiology following Code(s): I08.0 - RHEUMATIC DISORDERS OF BOTH MITRAL AND AORTIC VALVES (8) Hypokalemia Assessment/Plan: k-3.7 po potassium 40meq ordered monitor labs Code(s): E87.6 - HYPOKALEMIA dispo home once transitioned to po diuretic and cleared by cardiology
[2017-08-21] MEDS ORDERED: POTASSIUM CHLORIDE TABS 20 MEQ TABLET.ER (FP) PO ONE (13:14)
--- NOTE | 2017-08-21 17:29 | PN ---
Progress Note (short form) - Note Progress Note: CC: sob/abd pain S: significant improvement in abdominal distension with resulting increase in appetite today. Still with mild orthopnea, (although improved). LE edema resolved. Current Medications Apixaban (Eliquis -) 2.5 mg PO BID [facility] Carvedilol (Coreg -) 3.125 mg PO BID [facility] Last Admin: 08/21/17 10:02 Dose: 3.125 mg Cholecalciferol (Vitamin D3 -) 2,000 unit PO DAILY [facility] Last Admin: 08/21/17 10:02 Dose: 2,000 unit Cyanocobalamin (Vitamin B12 -) 1,000 mcg PO DAILY [facility] Last Admin: 08/21/17 10:02 Dose: 1,000 mcg Docusate Sodium (Colace -) 100 mg PO TID [facility] Furosemide (Lasix Injection -) 20 mg IVPUSH DAILY [facility] Multivitamins/Minerals (Theragran-M) 1 each PO DAILY [facility] Last Admin: 08/21/17 10:02 Dose: 1 each Non-Formulary Medication (Lovastatin [Lovastatin]) 10 mg PO HS [facility] Pantoprazole Sodium (Protonix Iv) 40 mg IVPUSH DAILY [facility] Last Admin: 08/21/17 10:02 Dose: 40 mg Polyethylene Glycol (Miralax (For Daily Use) -) 17 gm PO BID [facility] Quinapril HCl (Accupril -) 10 mg PO DAILY [facility] Last Admin: 08/21/17 10:01 Dose: 10 mg Vital Signs - 24 hr 08/20/17 08/21/17 08/21/17 21:00 06:00 09:00 Temperature 98 F Pulse Rate 66 Respiratory 18 18 Rate Blood Pressure 136/74 O2 Sat by Pulse 96 94 L Oximetry (%) 08/21/17 08/21/17 14:52 17:12 Temperature 98.0 F 98.3 F Pulse Rate 69 76 Respiratory 18 20 Rate Blood Pressure 97/60 133/78 O2 Sat by Pulse Oximetry (%) Intake & Output 08/19/17 08/20/17 08/21/17 08/22/17 07:59 07:59 07:59 07:59 Intake Total 1600 700 Output Total 950 Balance 1600 -250 Weight 119 lb 11.2 oz 125 lb 124 lb 8 oz nad, calm jvd flat, neck supple trace bibasilar dullness, nl effort irregularly irregular nl s1, s2 2/6 murmur at sternal border with radiation throughout precordium + bs soft nt nd no le e/c/c + varicosities aaox3 no jaundice, diaphoresis CBC, BMP 08/21/17 06:45 08/21/17 06:45 EKG: afib with pvc's. no acute ischemic changes. ct scan images and report reviewed : + bilateral pleural effusions. see emr for full details Recent office echo done last month with progression to severe (from mod). 81 yo with h/o diastolic/valvular HF, severe , mod ar, perm afib on eliquis/ coreg (eliquis recently decreased due to change in weight), varicose veins, htn , hl , gerd, oa who p/w sob/abdominal pain. diastolic/valvular HF/severe /mod AR - had recently decreased diuretic dose in setting of weight loss and poor po intake, but now with sx's of overload and evidence of bilateral pleural effusion on ct scan. Will continue diuresis with lasix 40 mg iV daily. dailly weights, bmp, i/o's - recent progression of moderate to severe (on office echo last month). Now also sx with HF exacerabation. Have had multiple discussions with patient regarding TAVR evaluation. patient will continue to consider but currently not ready. - 08/21: Sig improvement in sx's but not yet back to baseline. (still with mild orthopnea). Bump in Cr today --> will decrease diuretic dose to 20 mg IV daily for tomorrow. Repeat PA/LAT cxr in morning to assess extent of improvement in pleural effusions. Patient has mild ckd at baseline so will allow for some slight increase in creatinine in order for patient to have symptomatic relief. May need to hold quinapril depending on extent of renal dysfunction tomorrow. - standing weights, i/o's, bmp. lyte repletion prn. perm afib - decreased eliquis dose to 2.5 mg bid b/c of age and weight. - con't rate control with coreg. htn - bp now controlled on coreg, quinapril, hl - con't home statin
[2017-08-21] MEDS: POLYETHYLENE GLYCOL 3350 119 GM BTL PO SCH (22:26)
[2017-08-21] MEDS: DOCUSATE SODIUM 100 MG CAPSULE (FP) PO SCH (22:26)
[2017-08-21] MEDS: APIXABAN 2.5 MG TABLET PO SCH (22:26)
--- NOTE | 2017-08-22 05:47 | HOSP ---
Subjective - Review of Symptoms Events since last encounter: Hospitalist Encounter Notified by the RN, the patient reports feeling nauseous, "feeling faint", abdominal pain Subjective: A/P 81 y/o F with PMH HTN, HLD, AF on elequis who presents with signs and symptoms of CHF exacerbation following discontinuation of her lasix. Plan: BGM stat Zofran IVP orthostatics EKG stat Cardiac Profile stat Physical Examination Vital Signs: Vital Signs Temperature 98.6 F 08/21/17 23:00 Pulse Rate 77 08/21/17 23:00 Respiratory Rate 20 08/21/17 23:00 Blood Pressure 126/78 08/21/17 23:00 O2 Sat by Pulse Oximetry (%) 94 L 08/21/17 21:00 Labs: CBC, BMP 08/21/17 06:45 08/21/17 06:45
[2017-08-22 06:25] LABS: BASO % 1.3 % (0-2.0); HEMATOCRIT 39.2 % (32.4-45.2); HEMOGLOBIN 13.1 GM/dL (10.7-15.3); LYMPH % 21.7 % (8-40); MCHC 33.5 g/dl (32.0-36.0); MEAN CELL VOLUME 86.7 fl (80-96); MEAN PLT VOLUME 8.4 fl (7.5-11.1); MONO % 10.3 % (3.8-10.2); NEUT % 61.7 % (42.8-82.8); PLATELET COUNT 227 K/MM3 (134-434); RBC 4.52 M/mm3 (3.60-5.2); RDW 15.7 % (11.6-15.6); WHITE BLOOD COUNT 7.7 K/mm3 (4.0-10.0)
[2017-08-22] MEDS ORDERED: ONDANSETRON 4 MG/2 ML VIAL IVPUSH ONE (06:35)
[2017-08-22] MEDS: DOCUSATE SODIUM 100 MG CAPSULE (FP) PO SCH ×3 (06:40→21:17)
[2017-08-22 07:08] LABS: ALBUMIN 3.5 g/dl (3.4-5.0); ALK PHOS 72 U/L (45-117); ANION GAP 9 (8-16); BILIRUBIN,TOTAL 1.2 mg/dL (0.2-1.0); BLOOD UREA NITROGEN 32 mg/dL (7-18); CALCIUM 8.2 mg/dL (8.5-10.1); CHLORIDE 106 mmol/L (98-107); CO2 27 mmol/L (21-32); CREATININE 1.1 mg/dL (0.55-1.02); GLUCOSE,RANDOM 98 mg/dL (74-106); MAGNESIUM 2.1 mg/dL (1.8-2.4); POTASSIUM 4.1 mmol/L (3.5-5.1); SGOT/AST 19 U/L (15-37); SGPT/ALT 21 U/L (12-78); SODIUM 142 mmol/L (136-145); TOT PROT 7.1 g/dl (6.4-8.2)
[2017-08-22] MEDS: APIXABAN 2.5 MG TABLET PO SCH ×2 (11:25→21:17)
[2017-08-22] MEDS: CYANOCOBALAMIN 1,000 MCG TABLET (FP) PO SCH (11:25)
[2017-08-22] MEDS: CHOLECALCIFEROL (VITAMIN D3) 1,000 UNIT TABLET (FP) PO SCH (11:25)
[2017-08-22] MEDS: MULTIVITAMINS THER W-MINERALS COMBO TABLET (FP) PO SCH (11:25)
[2017-08-22] MEDS: CARVEDILOL 3.125 MG TABLET (FP) PO SCH ×2 (11:25→21:17)
[2017-08-22] MEDS: QUINAPRIL HCL 10 MG TABLET (FP) PO SCH (11:26)
[2017-08-22] MEDS: POLYETHYLENE GLYCOL 3350 119 GM BTL PO SCH ×2 (11:29→21:19)
[2017-08-22] MEDS: PANTOPRAZOLE SODIUM 40 MG VIAL IVPUSH SCH (11:43)
[2017-08-22] MEDS: FUROSEMIDE 40 MG/4 ML INJECTABLE VIAL IVPUSH SCH (11:46)
--- NOTE | 2017-08-22 12:01 | EKG ---
Test Reason : Blood Pressure : / mmHG Vent. Rate : 072 BPM Atrial Rate : 062 BPM P-R Int : 000 ms QRS Dur : 106 ms QT Int : 418 ms P-R-T Axes : 000 -39 045 degrees QTc Int : 457 ms ATRIAL FIBRILLATION WITH PREMATURE VENTRICULAR OR ABERRANTLY CONDUCTED COMPLEXES LEFT AXIS DEVIATION ABNORMAL ECG WHEN COMPARED WITH ECG OF 19-AUG-2017 11:00, NO SIGNIFICANT CHANGE WAS FOUND Confirmed by LUIS OSEGUERA MD ([id number]) on 08/22/2017 12:00:37 PM Referred By: Confirmed By:LUIS OSEGUERA MD
[2017-08-22] MEDS ORDERED: FUROSEMIDE 40 MG/4 ML INJECTABLE VIAL IVPUSH ONE (13:40)
--- NOTE | 2017-08-22 15:04 | PN ---
Progress Note, Physician Chief Complaint: pt sitting in chair in no acute distress. Denies any chest pain, sob, n/v/d, abdominal pain - Current Medication List Current Medications: Active Medications Apixaban (Eliquis -) 2.5 mg PO BID [facility] Last Admin: 08/22/17 11:25 Dose: 2.5 mg Carvedilol (Coreg -) 3.125 mg PO BID [facility] Last Admin: 08/22/17 11:25 Dose: 3.125 mg Cholecalciferol (Vitamin D3 -) 2,000 unit PO DAILY [facility] Last Admin: 08/22/17 11:25 Dose: 2,000 unit Cyanocobalamin (Vitamin B12 -) 1,000 mcg PO DAILY [facility] Last Admin: 08/22/17 11:25 Dose: 1,000 mcg Docusate Sodium (Colace -) 100 mg PO TID [facility] Last Admin: 08/22/17 06:40 Dose: 100 mg Furosemide (Lasix Injection -) 20 mg IVPUSH DAILY [facility] Last Admin: 08/22/17 11:46 Dose: 20 mg Multivitamins/Minerals (Theragran-M) 1 each PO DAILY [facility] Last Admin: 08/22/17 11:25 Dose: 1 each Non-Formulary Medication (Lovastatin [Lovastatin]) 10 mg PO [facility] Pantoprazole Sodium (Protonix Iv) 40 mg IVPUSH DAILY [facility] Last Admin: 08/22/17 11:43 Dose: 40 mg Polyethylene Glycol (Miralax (For Daily Use) -) 17 gm PO BID [facility] Last Admin: 08/22/17 11:29 Dose: 17 gm Quinapril HCl (Accupril -) 10 mg PO DAILY [facility] Last Admin: 08/22/17 11:26 Dose: 10 mg - Objective Vital Signs: Vital Signs Temperature 98.3 F 08/22/17 14:20 Pulse Rate 76 08/22/17 14:20 Respiratory Rate 18 08/22/17 14:20 Blood Pressure 97/52 08/22/17 14:20 O2 Sat by Pulse Oximetry (%) 95 08/22/17 09:00 Constitutional: Yes: No Distress, Calm Labs: CBC, BMP 08/22/17 06:00 08/22/17 06:00 INR, PTT INR 1.66 (0.82-1.09) H D 08/19/17 10:45 Problem List - Problems (1) CHF (congestive heart failure) Code(s): I50.9 - HEART FAILURE, UNSPECIFIED Qualifiers: Congestive heart failure type: diastolic Congestive heart failure chronicity: acute on chronic Qualified Code(s): I50.33 - Acute on chronic diastolic (congestive) heart failure (2) Pleural effusion Code(s): J90 - PLEURAL EFFUSION, NOT ELSEWHERE CLASSIFIED (3) Abdominal pain Code(s): R10.9 - UNSPECIFIED ABDOMINAL PAIN Qualifiers: Abdominal location: epigastric Qualified Code(s): R10.13 - Epigastric pain (4) HTN (hypertension) Code(s): I10 - ESSENTIAL (PRIMARY) HYPERTENSION Qualifiers: Hypertension type: essential hypertension Qualified Code(s): I10 - Essential (primary) hypertension (5) Hyperlipidemia Code(s): E78.5 - HYPERLIPIDEMIA, UNSPECIFIED Qualifiers: Hyperlipidemia type: pure hypercholesterolemia Qualified Code(s): E78.00 - Pure hypercholesterolemia, unspecified; E78.0 - Pure hypercholesterolemia (6) Afib Code(s): I48.91 - UNSPECIFIED ATRIAL FIBRILLATION Qualifiers: Atrial fibrillation type: permanent Qualified Code(s): I48.2 - Chronic atrial fibrillation (7) Mitral regurgitation and aortic stenosis Code(s): I08.0 - RHEUMATIC DISORDERS OF BOTH MITRAL AND AORTIC VALVES (8) Hypokalemia Code(s): E87.6 - HYPOKALEMIA (9) DVT prophylaxis Code(s): [id number] - Assessment/Plan (1) CHF (congestive heart failure) Assessment/Plan: acute on chronic, diastolic, sob w/ exertion improved today chest xray today shows pleural effusions with improved congestion case discussed with iv lasix 20mg, transition to po tomorrow cardiology following daily weights-standing low na diet Code(s): I50.9 - HEART FAILURE, UNSPECIFIED Qualifiers: Congestive heart failure type: diastolic Congestive heart failure chronicity: acute on chronic Qualified Code(s): I50.33 - Acute on chronic diastolic (congestive) heart failure (2) Pleural effusion Assessment/Plan: b/l small pleural effusions lasix 20mg daily per cardiology repeat chest xray today unchanged pleural effusions Code(s): J90 - PLEURAL EFFUSION, NOT ELSEWHERE CLASSIFIED (3) Abdominal pain Assessment/Plan: resolved CT unremarkable continue protonix will monitor Code(s): R10.9 - UNSPECIFIED ABDOMINAL PAIN Qualifiers: Abdominal location: epigastric Qualified Code(s): R10.13 - Epigastric pain (4) HTN (hypertension) Assessment/Plan: stable continue coreg, quinapril Code(s): I10 - ESSENTIAL (PRIMARY) HYPERTENSION Qualifiers: Hypertension type: essential hypertension Qualified Code(s): I10 - Essential (primary) hypertension (5) Hyperlipidemia Assessment/Plan: stable continue home meds Code(s): E78.5 - HYPERLIPIDEMIA, UNSPECIFIED Qualifiers: Hyperlipidemia type: pure hypercholesterolemia Qualified Code(s): E78.00 - Pure hypercholesterolemia, unspecified; E78.0 - Pure hypercholesterolemia (6) Afib Assessment/Plan: chronic, stable, coagulated on eliquis 2.5mg bid rate controlled on coreg cardiology following Code(s): I48.91 - UNSPECIFIED ATRIAL FIBRILLATION Qualifiers: Atrial fibrillation type: chronic Qualified Code(s): I48.2 - Chronic atrial fibrillation (7) Mitral regurgitation and aortic stenosis Assessment/Plan: valvular disease coagulated on eliquis cardiology following Code(s): I08.0 - RHEUMATIC DISORDERS OF BOTH MITRAL AND AORTIC VALVES (8) Hypokalemia Assessment/Plan: resolved Code(s): E87.6 - HYPOKALEMIA dispo home once transitioned to po diuretic and cleared by cardiology
--- NOTE | 2017-08-22 20:28 | PN ---
Progress Note (short form) - Note Progress Note: CC: sob/abd pain S: significant improvement in abdominal distension. Still with mild orthopnea , (although improved). LE edema resolved. poor appetite today but pt states this is b/c she is anxious. Cr stable today, received lasix 20 mg IV x 2 Current Medications Apixaban (Eliquis -) 2.5 mg PO BID [facility] Last Admin: 08/22/17 11:25 Dose: 2.5 mg Carvedilol (Coreg -) 3.125 mg PO BID [facility] Last Admin: 08/22/17 11:25 Dose: 3.125 mg Cholecalciferol (Vitamin D3 -) 2,000 unit PO DAILY [facility] Last Admin: 08/22/17 11:25 Dose: 2,000 unit Cyanocobalamin (Vitamin B12 -) 1,000 mcg PO DAILY [facility] Last Admin: 08/22/17 11:25 Dose: 1,000 mcg Docusate Sodium (Colace -) 100 mg PO TID [facility] Last Admin: 08/22/17 15:38 Dose: 100 mg Furosemide (Lasix Injection -) 20 mg IVPUSH DAILY [facility] Last Admin: 08/22/17 11:46 Dose: 20 mg Multivitamins/Minerals (Theragran-M) 1 each PO DAILY [facility] Last Admin: 08/22/17 11:25 Dose: 1 each Non-Formulary Medication (Lovastatin [Lovastatin]) 10 mg PO [facility] Pantoprazole Sodium (Protonix Iv) 40 mg IVPUSH DAILY [facility] Last Admin: 08/22/17 11:43 Dose: 40 mg Polyethylene Glycol (Miralax (For Daily Use) -) 17 gm PO BID [facility] Last Admin: 08/22/17 11:29 Dose: 17 gm Quinapril HCl (Accupril -) 10 mg PO DAILY [facility] Last Admin: 08/22/17 11:26 Dose: 10 mg Vital Signs - 24 hr 08/21/17 08/21/17 08/22/17 21:00 23:00 06:00 Temperature 98.6 F 98.2 F Pulse Rate 77 67 Pulse Rate [ Sitting] Pulse Rate [ Standing] Pulse Rate [ Supine] Respiratory 20 20 20 Rate Blood Pressure 126/78 162/79 Blood Pressure [Sitting] Blood Pressure [Standing] Blood Pressure [Supine] O2 Sat by Pulse 94 L Oximetry (%) 08/22/17 08/22/17 08/22/17 09:00 10:09 12:00 Temperature 98.1 F Pulse Rate 74 Pulse Rate [ 74 Sitting] Pulse Rate [ 72 Standing] Pulse Rate [ 75 Supine] Respiratory 16 16 Rate Blood Pressure 139/92 Blood Pressure 135/75 [Sitting] Blood Pressure 131/68 [Standing] Blood Pressure 139/92 [Supine] O2 Sat by Pulse 95 Oximetry (%) 08/22/17 08/22/17 14:20 17:23 Temperature 98.3 F 98.9 F Pulse Rate 76 74 Pulse Rate [ Sitting] Pulse Rate [ Standing] Pulse Rate [ Supine] Respiratory 18 20 Rate Blood Pressure 97/52 106/54 Blood Pressure [Sitting] Blood Pressure [Standing] Blood Pressure [Supine] O2 Sat by Pulse Oximetry (%) Intake & Output 08/20/17 08/21/17 08/22/17 08/23/17 07:59 07:59 07:59 07:59 Intake Total 1600 1200 840 Output Total 1250 1060 Balance 1600 -50 -220 Weight 119 lb 11.2 oz 125 lb 125 lb 126 lb 12.8 oz nad, calm jvd flat, neck supple trace bibasilar rales, nl effort irregularly irregular nl s1, s2 2/6 murmur at sternal border with radiation throughout precordium + bs soft nt nd no le e/c/c + varicosities aaox3 no jaundice, diaphoresis CBC, BMP 08/22/17 06:00 08/22/17 06:00 EKG: afib with pvc's. no acute ischemic changes. ct scan images and report reviewed : + bilateral pleural effusions. see emr for full details Recent office echo done last month with progression to severe (from mod). 81 yo with h/o diastolic/valvular HF, severe , mod ar, perm afib on eliquis/ coreg (eliquis recently decreased due to change in weight), varicose veins, htn , hl , gerd, oa who p/w sob/abdominal pain. diastolic/valvular HF/severe /mod AR - had recently decreased diuretic dose in setting of weight loss and poor po intake, but now with sx's of overload and evidence of bilateral pleural effusion on ct scan. Will continue diuresis with lasix 40 mg iV daily. dailly weights, bmp, i/o's - recent progression of moderate to severe (on office echo last month). Now also sx with HF exacerabation. Have had multiple discussions with patient regarding TAVR evaluation. patient will continue to consider but currently not ready. - 08/21: Sig improvement in sx's but not yet back to baseline. (still with mild orthopnea). Bump in Cr today --> will decrease diuretic dose to 20 mg IV daily for tomorrow. Repeat PA/LAT cxr in morning to assess extent of improvement in pleural effusions. Patient has mild ckd at baseline so will allow for some slight increase in creatinine in order for patient to have symptomatic relief. May need to hold quinapril depending on extent of renal dysfunction tomorrow. - 08/22 Cr stable today. still with pleural effusion on cxr and mild orthopnea -- > gave lasix 20 mg IV bid today. If symptomatically better today --> can send home on torsemide 20 mg daily - standing weights, i/o's, bmp. lyte repletion prn. perm afib - decreased eliquis dose to 2.5 mg bid b/c of age and weight. - con't rate control with coreg. htn - bp now controlled on coreg, quinapril, hl - con't home statin
[2017-08-23] MEDS: DOCUSATE SODIUM 100 MG CAPSULE (FP) PO SCH (05:34)
[2017-08-23 08:07] LABS: HEMATOCRIT 39.9 % (32.4-45.2); HEMOGLOBIN 12.9 GM/dL (10.7-15.3); LYMPH % 23.7 % (8-40); MCH 28.3 pg (25.7-33.7); MCHC 32.4 g/dl (32.0-36.0); MEAN CELL VOLUME 87.4 fl (80-96); MEAN PLT VOLUME 8.5 fl (7.5-11.1); NEUT % 60.3 % (42.8-82.8); PLATELET COUNT 208 K/MM3 (134-434); RBC 4.56 M/mm3 (3.60-5.2); RDW 15.5 % (11.6-15.6); WHITE BLOOD COUNT 7.4 K/mm3 (4.0-10.0)
[2017-08-23 08:33] LABS: CHLORIDE 103 mmol/L (98-107); POTASSIUM 3.9 mmol/L (3.5-5.1); SODIUM 141 mmol/L (136-145)
[2017-08-23 08:37] LABS: ANION GAP 8 (8-16); BLOOD UREA NITROGEN 39 mg/dL (7-18); CALCIUM 8.9 mg/dL (8.5-10.1); CO2 30 mmol/L (21-32); CREATININE 1.2 mg/dL (0.55-1.02); GLUCOSE,RANDOM 91 mg/dL (74-106); MAGNESIUM 2.2 mg/dL (1.8-2.4); PHOSPHOROUS 3.6 mg/dL (2.5-4.9)
[2017-08-23] MEDS ORDERED: PT OWN MED DRAWER 7, Y5N ONE (09:51)
[2017-08-23] MEDS: MULTIVITAMINS THER W-MINERALS COMBO TABLET (FP) PO SCH (09:56)
[2017-08-23] MEDS: CYANOCOBALAMIN 1,000 MCG TABLET (FP) PO SCH (09:56)
[2017-08-23] MEDS: FUROSEMIDE 40 MG/4 ML INJECTABLE VIAL IVPUSH SCH (09:56)
[2017-08-23] MEDS: CHOLECALCIFEROL (VITAMIN D3) 1,000 UNIT TABLET (FP) PO SCH (09:56)
[2017-08-23] MEDS: CARVEDILOL 3.125 MG TABLET (FP) PO SCH (09:56)
[2017-08-23] MEDS: APIXABAN 2.5 MG TABLET PO SCH (09:56)
[2017-08-23] MEDS: PANTOPRAZOLE SODIUM 40 MG VIAL IVPUSH SCH (09:56)
[2017-08-23] MEDS: QUINAPRIL HCL 10 MG TABLET (FP) PO SCH (09:57)
[2017-08-23] MEDS: POLYETHYLENE GLYCOL 3350 119 GM BTL PO SCH (09:57)
--- NOTE | 2017-08-23 10:22 | DS ---
Physical Examination Vital Signs: Vital Signs Temperature 98 F 08/23/17 06:00 Pulse Rate 68 08/23/17 06:00 Respiratory Rate 18 08/23/17 06:00 Blood Pressure 121/90 08/23/17 06:00 O2 Sat by Pulse Oximetry (%) 95 08/22/17 21:00 Findings/Remarks: No acute events overnight. Pt resting well in chair, stating she wants to go home. Slightly tired otherwise no issues. Denies chest pain, sob, n/v/d. Constitutional: Yes: No Distress, Calm Cardiovascular: Yes: Pulse Irregular, Murmur, S1, S2 Respiratory: Yes: Regular, CTA Bilaterally. No: Rales, Rhonchi, SOB, Wheezes Gastrointestinal: Yes: WNL, Normal Bowel Sounds, Soft. No: Distention, Tenderness Edema: Yes Edema: LLE: Trace, RLE: Trace Neurological: Yes: WNL, Alert, Oriented Psychiatric: Yes: WNL, Alert, Oriented Labs: CBC, BMP 08/23/17 06:30 08/23/17 06:30 Discharge Summary Reason For Visit: CONGESTIVE HEART FAILURE Current Active Problems Abdominal pain (Acute) Afib (Acute) Aortic stenosis (Acute) CHF (congestive heart failure) (Acute) DVT prophylaxis (Acute) HTN (hypertension) (Acute) Hyperlipidemia (Acute) Hypokalemia (Acute) Mitral regurgitation and aortic stenosis (Acute) Pleural effusion (Acute) Hospital Course: is a 81 year old female with pmh of CHF, HLD, HTN, Afib, Mitral regu/aortic stenosis who was admitted with worsening sob, weakness, chest pain, and abdominal pain. On chest xray, pt found to have b/l pleural effusions. ID work up unremarkable. Pt has been managed by Dr.Caroll salgado. Pt has been successfully treated for chf, diuresed and Torsemide restarted by cardiology. Worsening /MR on echo, pcp and cardiology discussed with pt on options. Slight elevation in renal function was noted, most likely secondary to diuresis. Pt has been progressing well with improvement in sob and le edema. Pt has been ambulating without difficulty. d/c pt home w/ [facility] on toresemide and have pt f/u with pcp and cardiology in 1 week. Condition: Stable - Instructions Diet, Activity, Other Instructions: Low Na diet Take medication torsemide 20mg daily starting tomorrow Ambulate as tolerated check weight daily at the same time please contact pcp if weight gain more than 3-5lbs over 2-3days please seek medical care if worsening chest pain, sob, dizziness or fainting, or increased lower extremity edema Please follow up with and in 1-2 weeks Referrals: Karen Chavis MD [Staff Physician] - 1 Week Endy Pantoja MD [Primary Care Provider] - 1 Week Disposition: [facility]NS/HOME HEALTH CARE - Home Medications Comprehensive Discharge Medication List: Ambulatory Orders Quinapril HCl [Accupril -] 10 mg PO DAILY 01/27/13 Apixaban [Eliquis -] 2.5 mg PO BID 08/19/17 Carvedilol 3.125 mg PO BID 08/19/17 Cholecalciferol (Vitamin D3) [Vitamin D3 -] 2,000 unit PO DAILY 08/19/17 Cyanocobalamin [Vitamin B12 -] 1,000 mcg PO DAILY 08/19/17 Folic Acid/Multivit,Iron,Soil [employer]ist [Centrum Chewable Tablet] 1 each PO DAILY Lovastatin 10 mg PO HS 08/19/17
[2017-08-23 11:36] VITALS: BP 133/64; PULSE 69; TEMP 98.1
[2017-08-24] MEDS ORDERED: TORSEMIDE 20 MG TABLET (FP) PO SCH (10:00)
== END 2017-08-23 13:19 | disposition home health service (06) | DRG 291 ==
LOC: JER 08:55 → JERBED 19:09 → J8W 23:18
PROVIDERS: ADMIT Internal Medicine; ATTEND Internal Medicine
DX: I13.0 Hypertensive heart and chronic kidney disease with heart failure and stage 1 through stage 4 chronic kidney disease, or unspecified chronic kidney disease (principal); I50.33 Acute on chronic diastolic (congestive) heart failure; E11.22 Type 2 diabetes mellitus with diabetic chronic kidney disease; N18.9 Chronic kidney disease, unspecified; I08.0 Rheumatic disorders of both mitral and aortic valves; I48.2 Chronic atrial fibrillation; E87.6 Hypokalemia; E78.5 Hyperlipidemia, unspecified; Z85.42 Personal history of malignant neoplasm of other parts of uterus; Z96.641 Presence of right artificial hip joint; K42.9 Umbilical hernia without obstruction or gangrene; Z90.710 Acquired absence of both cervix and uterus; R10.13 Epigastric pain; K21.9 Gastro-esophageal reflux disease without esophagitis; I83.93 Asymptomatic varicose veins of bilateral lower extremities; Z79.01 Long term (current) use of anticoagulants; R63.4 Abnormal weight loss; Z68.23 Body mass index [BMI] 23.0-23.9, adult
CPT/HCPCS: 36415; 71045-TC; 71046-TC-FY; 74176-TC; 80048; 80053; 81003; 81015; 82550; 82962; 83690; 83735; 83880; 84100; 84484; 85025; 85027; 85610; 85730; 87086; 87804; 93005; 93010; 97116-GP; 97161-GP; 99285-25

== ENCOUNTER 2020-06-06 13:29 | Inpatient (IN) | payer OTHER, BC ==
[2020-06-06] MEDS ORDERED: morphine CARPU-JECT 4 MG/1 ML DISP.SYRIN IVPUSH ONE (13:45)
[2020-06-06] MEDS ORDERED: SODIUM CHLORIDE 1,000 ML IV STA (13:45)
[2020-06-06] MEDS ORDERED: ACETAMINOPHEN 1000 MG/100 ML VIAL (NON FORMULARY) IVPB ONE (13:45)
[2020-06-06 14:00] VITALS: BMI 22.3
[2020-06-06] MEDS ORDERED: morphine SULFATE 4 MG/ML VIAL ONE (14:08)
[2020-06-06 14:18] LABS: BASO % 0.8 % (0-2.0); EOS % 1.9 % (0-4.5); HEMATOCRIT 35.1 % (32.4-45.2); HEMOGLOBIN 11.6 GM/dL (10.7-15.3); LYMPH % 23.2 % (8-40); MCHC 33.1 g/dl (32.0-36.0); MEAN CELL VOLUME 87.6 fl (80-96); MEAN PLT VOLUME 8.1 fl (7.5-11.1); MONO % 7.6 % (3.8-10.2); NEUT % 66.5 % (42.8-82.8); PLATELET COUNT 131 K/MM3 (134-434); RDW 15.5 % (11.6-15.6); WHITE BLOOD COUNT 7.6 K/mm3 (4.0-10.0)
[2020-06-06 14:31] LABS: INR 1.69 (0.83-1.09); PROTHROMBIN TIME (PATIENT) 20.5 SEC (9.7-13.0)
[2020-06-06 14:34] LABS: ACTIVATED PTT 33.2 SECONDS (25.2-36.5); POTASSIUM 3.5 mmol/L (3.5-5.1)
[2020-06-06 14:36] LABS: ALBUMIN 3.4 g/dl (3.4-5.0); BLOOD UREA NITROGEN 29.5 mg/dL (7-18); CALCIUM 8.6 mg/dL (8.5-10.1)
[2020-06-06 14:40] LABS: CREATININE 1.1 mg/dL (0.55-1.3)
[2020-06-06 14:41] LABS: BILIRUBIN,TOTAL 0.6 mg/dL (0.2-1); TOT PROT 7.8 g/dl (6.4-8.2)
[2020-06-06] MEDS ORDERED: LACTATED RINGERS SOLUTION 1,000 ML IV SCH (22:00)
[2020-06-06] MEDS ORDERED: CARVEDILOL 3.125 MG TABLET (FP) ONE (22:15)
[2020-06-06] MEDS ORDERED: ACETAMINOPHEN INJECTION 100 ML IVPB ONE (22:16)
[2020-06-06] MEDS ORDERED: ATORVASTATIN CA 10 MG TABLET (FP) ONE (22:17)
[2020-06-06] MEDS: CARVEDILOL 3.125 MG TABLET (FP) PO SCH (22:51)
[2020-06-06] MEDS: INSULIN SLIDING SCALE (NOVOLOG) 1 VIAL SQ SCH (22:52)
[2020-06-06] MEDS: ATORVASTATIN CA 10 MG TABLET (FP) PO SCH (22:52)
[2020-06-06] MEDS: ACETAMINOPHEN 1000 MG/100 ML VIAL (NON FORMULARY) IVPB SCH (22:52)
[2020-06-07] MEDS: LACTATED RINGERS SOLUTION 1,000 ML IV SCH ×2 (02:04→23:55)
[2020-06-07] MEDS: ACETAMINOPHEN 1000 MG/100 ML VIAL (NON FORMULARY) IVPB SCH ×2 (06:16→13:33)
[2020-06-07] MEDS: INSULIN SLIDING SCALE (NOVOLOG) 1 VIAL SQ SCH ×4 (06:19→21:07)
[2020-06-07 08:10] LABS: HEMATOCRIT 27.3 % (32.4-45.2); HEMOGLOBIN 9.2 GM/dL (10.7-15.3); MCH 29.4 pg (25.7-33.7); MCHC 33.7 g/dl (32.0-36.0); MEAN CELL VOLUME 87.3 fl (80-96); MEAN PLT VOLUME 8.6 fl (7.5-11.1); PLATELET COUNT 109 K/MM3 (134-434); RBC 3.12 M/mm3 (3.60-5.2); RDW 15.5 % (11.6-15.6); WHITE BLOOD COUNT 8.1 K/mm3 (4.0-10.0)
[2020-06-07 08:39] LABS: POTASSIUM 4.2 mmol/L (3.5-5.1)
[2020-06-07 08:40] LABS: CALCIUM 8.4 mg/dL (8.5-10.1)
[2020-06-07 08:41] LABS: BLOOD UREA NITROGEN 26.2 mg/dL (7-18); MAGNESIUM 2.2 mg/dL (1.8-2.4)
[2020-06-07 08:45] LABS: PHOSPHOROUS 3.4 mg/dL (2.5-4.9)
[2020-06-07] MEDS: CARVEDILOL 3.125 MG TABLET (FP) PO SCH (10:06)
[2020-06-07] MEDS: MULTIVITAMINS THER W-MINERALS COMBO TABLET (FP) PO SCH (10:06)
[2020-06-07] MEDS: CHOLECALCIFEROL (VIT D3) 1,000 UNIT (25 MCG) TABLET PO SCH (10:07)
[2020-06-07] MEDS: TORSEMIDE 20 MG TABLET (FP) PO SCH (10:07)
[2020-06-07] MEDS: MORPHINE SULFATE 2 MG/ML VIAL IVPUSH PRN (10:07)
[2020-06-07] MEDS ORDERED: PT OWN MED DRAWER 7, Y5N ONE (10:26)
[2020-06-07] MEDS: CYANOCOBALAMIN 1,000 MCG TABLET (FP) PO SCH (12:00)
[2020-06-07] MEDS: LOSARTAN POTASSIUM 25 MG TABLET PO SCH (13:24)
[2020-06-07] MEDS: ATORVASTATIN CA 10 MG TABLET (FP) PO SCH (21:07)
[2020-06-07] MEDS ORDERED: ACETAMINOPHEN 1000 MG/100 ML VIAL (NON FORMULARY) IVPB PRN (22:06)
[2020-06-08] MEDS: MORPHINE SULFATE 2 MG/ML VIAL IVPUSH PRN ×3 (00:06→17:47)
[2020-06-08] MEDS: LACTATED RINGERS SOLUTION 1,000 ML IV SCH ×2 (06:12→17:46)
[2020-06-08] MEDS: INSULIN SLIDING SCALE (NOVOLOG) 1 VIAL SQ SCH ×4 (06:12→21:15)
[2020-06-08 08:17] LABS: BASO % 0.7 % (0-2.0); EOS % 2.5 % (0-4.5); HEMATOCRIT 29.5 % (32.4-45.2); HEMOGLOBIN 9.6 GM/dL (10.7-15.3); LYMPH % 17.5 % (8-40); MCH 28.7 pg (25.7-33.7); MCHC 32.6 g/dl (32.0-36.0); MEAN PLT VOLUME 8.4 fl (7.5-11.1); NEUT % 70.3 % (42.8-82.8); PLATELET COUNT 109 K/MM3 (134-434); RBC 3.35 M/mm3 (3.60-5.2); RDW 15.7 % (11.6-15.6); WHITE BLOOD COUNT 10.6 K/mm3 (4.0-10.0)
[2020-06-08 08:18] LABS: INR 1.52 (0.83-1.09); PROTHROMBIN TIME (PATIENT) 18.5 SEC (9.7-13.0)
[2020-06-08] MEDS: LOSARTAN POTASSIUM 25 MG TABLET PO SCH (09:29)
[2020-06-08] MEDS: MULTIVITAMINS THER W-MINERALS COMBO TABLET (FP) PO SCH (09:32)
[2020-06-08] MEDS: CHOLECALCIFEROL (VIT D3) 1,000 UNIT (25 MCG) TABLET PO SCH (09:32)
[2020-06-08] MEDS: TORSEMIDE 20 MG TABLET (FP) PO SCH (09:32)
[2020-06-08] MEDS: CYANOCOBALAMIN 1,000 MCG TABLET (FP) PO SCH (09:32)
[2020-06-08 09:51] LABS: ALBUMIN 2.8 g/dl (3.4-5.0); BLOOD UREA NITROGEN 20.2 mg/dL (7-18); CALCIUM 8.5 mg/dL (8.5-10.1); MAGNESIUM 2.2 mg/dL (1.8-2.4)
[2020-06-08 09:55] LABS: CREATININE 0.9 mg/dL (0.55-1.3)
[2020-06-08 09:56] LABS: BILIRUBIN,TOTAL 0.7 mg/dL (0.2-1); TOT PROT 6.3 g/dl (6.4-8.2)
[2020-06-08] MEDS ORDERED: PROMETHAZINE HCL 25 MG/1 ML VIAL IVPUSH PRN ×2 (12:41→15:32)
[2020-06-08] MEDS ORDERED: ONDANSETRON 4 MG/2 ML VIAL IVPUSH PRN ×2 (12:41→15:32)
[2020-06-08] MEDS ORDERED: LACTATED RINGERS SOLUTION 1,000 ML IV SCH ×2 (12:45→14:00)
[2020-06-08] MEDS ORDERED: LIDOCAINE HCL/PF 2% SDV 5ML VIAL ONE (12:46)
[2020-06-08] MEDS ORDERED: ROCURONIUM BROMIDE 50 MG/5 ML SYRINGE ONE (12:47)
[2020-06-08] MEDS ORDERED: PROPOFOL 20 ML ONE (12:47)
[2020-06-08] MEDS ORDERED: fentaNYL CITRATE 250 MCG/5 ML VIAL ONE (12:47)
[2020-06-08] MEDS ORDERED: ceFAZolin SODIUM 1 GM VIAL IVPB ONE (12:57)
[2020-06-08] MEDS ORDERED: ceFAZolin SODIUM 1 GM VIAL ONE (12:57)
[2020-06-08] MEDS ORDERED: ACETAMINOPHEN 1000 MG/100 ML VIAL (NON FORMULARY) IVPB PRN (15:32)
[2020-06-08] MEDS: CEFAZOLIN 1 GM/D5W 1 GM/50 ML BAG IVPB SCH (17:45)
[2020-06-08] MEDS ORDERED: CEFAZOLIN 1 GM/D5W 1 GM/50 ML BAG IVPB SCH (18:00)
[2020-06-08] MEDS: ATORVASTATIN CA 10 MG TABLET (FP) PO SCH (21:10)
[2020-06-09] MEDS: MORPHINE SULFATE 2 MG/ML VIAL IVPUSH PRN ×2 (00:48→06:36)
[2020-06-09] MEDS: LACTATED RINGERS SOLUTION 1,000 ML IV SCH (01:12)
[2020-06-09] MEDS: CEFAZOLIN 1 GM/D5W 1 GM/50 ML BAG IVPB SCH (01:13)
[2020-06-09] MEDS: INSULIN SLIDING SCALE (NOVOLOG) 1 VIAL SQ SCH ×4 (06:04→22:15)
[2020-06-09 06:58] LABS: HEMATOCRIT 22.7 % (32.4-45.2); HEMOGLOBIN 7.3 GM/dL (10.7-15.3); MCH 28.3 pg (25.7-33.7); MCHC 32.4 g/dl (32.0-36.0); MEAN CELL VOLUME 87.4 fl (80-96); MEAN PLT VOLUME 8.8 fl (7.5-11.1); PLATELET COUNT 105 K/MM3 (134-434); RBC 2.59 M/mm3 (3.60-5.2); RDW 15.6 % (11.6-15.6); WHITE BLOOD COUNT 9.7 K/mm3 (4.0-10.0)
[2020-06-09 07:11] LABS: POTASSIUM 4.2 mmol/L (3.5-5.1)
[2020-06-09 07:27] LABS: ALBUMIN 2.4 g/dl (3.4-5.0); BLOOD UREA NITROGEN 21.7 mg/dL (7-18); CALCIUM 8.1 mg/dL (8.5-10.1); MAGNESIUM 2.1 mg/dL (1.8-2.4)
[2020-06-09 07:30] LABS: CREATININE 0.8 mg/dL (0.55-1.3)
[2020-06-09 07:32] LABS: TOT PROT 5.6 g/dl (6.4-8.2)
[2020-06-09 08:21] LABS: BILIRUBIN,TOTAL 0.8 mg/dL (0.2-1)
[2020-06-09] MEDS ORDERED: MORPHINE SULFATE 2 MG/ML VIAL IVPUSH ONE (09:24)
[2020-06-09] MEDS: CHOLECALCIFEROL (VIT D3) 1,000 UNIT (25 MCG) TABLET PO SCH (09:26)
[2020-06-09] MEDS: MULTIVITAMINS THER W-MINERALS COMBO TABLET (FP) PO SCH (09:26)
[2020-06-09] MEDS: LOSARTAN POTASSIUM 25 MG TABLET PO SCH (09:26)
[2020-06-09] MEDS: TORSEMIDE 20 MG TABLET (FP) PO SCH (09:26)
[2020-06-09] MEDS: ENOXAPARIN NA (PORCINE) 40 MG/0.4 ML DISP.SYRIN SQ SCH (09:27)
[2020-06-09] MEDS: CYANOCOBALAMIN 1,000 MCG TABLET (FP) PO SCH (09:27)
[2020-06-09] MEDS ORDERED: PT OWN MED DRAWER 7, Y5N ONE (09:28)
[2020-06-09] MEDS ORDERED: ENOXAPARIN NA (PORCINE) 40 MG/0.4 ML DISP.SYRIN SQ SCH (10:00)
[2020-06-09] MEDS: POLYETHYLENE GLYCOL 3350 119 GM BTL PO SCH (11:43)
[2020-06-09] MEDS: DOCUSATE SODIUM 100 MG CAPSULE (FP) PO SCH ×2 (14:02→22:10)
[2020-06-09] MEDS: oxyCODONE HCL 5 MG TABLET PO PRN (15:17)
[2020-06-09] MEDS: ATORVASTATIN CA 10 MG TABLET (FP) PO SCH (22:10)
[2020-06-10] MEDS: oxyCODONE HCL 5 MG TABLET PO PRN ×4 (02:11→22:00)
[2020-06-10] MEDS: INSULIN SLIDING SCALE (NOVOLOG) 1 VIAL SQ SCH ×4 (06:38→22:00)
[2020-06-10] MEDS: DOCUSATE SODIUM 100 MG CAPSULE (FP) PO SCH ×4 (06:38→22:00)
[2020-06-10 07:57] LABS: BASO % 0.7 % (0-2.0); EOS % 3.2 % (0-4.5); HEMATOCRIT 20.4 % (32.4-45.2); LYMPH % 12.2 % (8-40); MCH 28.5 pg (25.7-33.7); MCHC 32.8 g/dl (32.0-36.0); MEAN PLT VOLUME 8.5 fl (7.5-11.1); NEUT % 72.9 % (42.8-82.8); PLATELET COUNT 113 K/MM3 (134-434); RBC 2.34 M/mm3 (3.60-5.2); RDW 15.6 % (11.6-15.6); WHITE BLOOD COUNT 9.4 K/mm3 (4.0-10.0)
[2020-06-10 08:14] LABS: POTASSIUM 3.8 mmol/L (3.5-5.1)
[2020-06-10 08:16] LABS: ALBUMIN 2.2 g/dl (3.4-5.0); BLOOD UREA NITROGEN 24.1 mg/dL (7-18); CALCIUM 7.9 mg/dL (8.5-10.1); MAGNESIUM 2.2 mg/dL (1.8-2.4)
[2020-06-10 08:19] LABS: CREATININE 0.8 mg/dL (0.55-1.3)
[2020-06-10 08:21] LABS: BILIRUBIN,TOTAL 0.8 mg/dL (0.2-1); TOT PROT 5.5 g/dl (6.4-8.2)
[2020-06-10 08:31] LABS: HEMOGLOBIN 6.7 GM/dL (10.7-15.3)
[2020-06-10] MEDS ORDERED: PT OWN MED DRAWER 7, Y5N ONE (09:35)
[2020-06-10] MEDS: MULTIVITAMINS THER W-MINERALS COMBO TABLET (FP) PO SCH (09:36)
[2020-06-10] MEDS: LOSARTAN POTASSIUM 25 MG TABLET PO SCH (09:36)
[2020-06-10] MEDS: CYANOCOBALAMIN 1,000 MCG TABLET (FP) PO SCH (09:37)
[2020-06-10] MEDS: CHOLECALCIFEROL (VIT D3) 1,000 UNIT (25 MCG) TABLET PO SCH (09:37)
[2020-06-10] MEDS: TORSEMIDE 20 MG TABLET (FP) PO SCH (09:37)
[2020-06-10] MEDS: POLYETHYLENE GLYCOL 3350 119 GM BTL PO SCH (09:38)
[2020-06-10] MEDS: ENOXAPARIN NA (PORCINE) 40 MG/0.4 ML DISP.SYRIN SQ SCH (09:38)
[2020-06-10 18:02] LABS: HEMATOCRIT 27.5 % (32.4-45.2); HEMOGLOBIN 8.9 GM/dL (10.7-15.3); MCH 28.9 pg (25.7-33.7); MCHC 32.5 g/dl (32.0-36.0); MEAN CELL VOLUME 88.9 fl (80-96); MEAN PLT VOLUME 8.8 fl (7.5-11.1); PLATELET COUNT 123 K/MM3 (134-434); RBC 3.09 M/mm3 (3.60-5.2); RDW 14.9 % (11.6-15.6); WHITE BLOOD COUNT 10.6 K/mm3 (4.0-10.0)
[2020-06-10] MEDS: ATORVASTATIN CA 10 MG TABLET (FP) PO SCH (22:00)
[2020-06-11 05:39] VITALS: PULSE 96; TEMP 98.3
[2020-06-11] MEDS: DOCUSATE SODIUM 100 MG CAPSULE (FP) PO SCH (06:52)
[2020-06-11] MEDS: INSULIN SLIDING SCALE (NOVOLOG) 1 VIAL SQ SCH ×2 (07:00→11:25)
[2020-06-11 08:38] LABS: BASO % 0.6 % (0-2.0); EOS % 3.8 % (0-4.5); HEMOGLOBIN 9.3 GM/dL (10.7-15.3); LYMPH % 9.5 % (8-40); MCH 29.4 pg (25.7-33.7); MCHC 33.2 g/dl (32.0-36.0); MEAN CELL VOLUME 88.7 fl (80-96); MEAN PLT VOLUME 8.6 fl (7.5-11.1); MONO % 11.1 % (3.8-10.2); PLATELET COUNT 136 K/MM3 (134-434); RBC 3.16 M/mm3 (3.60-5.2); RDW 15.3 % (11.6-15.6); WHITE BLOOD COUNT 9.4 K/mm3 (4.0-10.0)
[2020-06-11 08:58] LABS: POTASSIUM 3.7 mmol/L (3.5-5.1)
[2020-06-11 09:01] LABS: CALCIUM 8.2 mg/dL (8.5-10.1)
[2020-06-11 09:02] LABS: ALBUMIN 2.5 g/dl (3.4-5.0); BLOOD UREA NITROGEN 26.5 mg/dL (7-18); MAGNESIUM 2.2 mg/dL (1.8-2.4)
[2020-06-11 09:05] LABS: CREATININE 0.9 mg/dL (0.55-1.3)
[2020-06-11 09:07] LABS: BILIRUBIN,TOTAL 2.1 mg/dL (0.2-1); TOT PROT 6.1 g/dl (6.4-8.2)
[2020-06-11] MEDS: ENOXAPARIN NA (PORCINE) 40 MG/0.4 ML DISP.SYRIN SQ SCH (09:51)
[2020-06-11] MEDS: POLYETHYLENE GLYCOL 3350 119 GM BTL PO SCH (09:51)
[2020-06-11] MEDS: MULTIVITAMINS THER W-MINERALS COMBO TABLET (FP) PO SCH (09:51)
[2020-06-11] MEDS: LOSARTAN POTASSIUM 25 MG TABLET PO SCH (09:51)
[2020-06-11] MEDS: TORSEMIDE 20 MG TABLET (FP) PO SCH (09:51)
[2020-06-11] MEDS: CHOLECALCIFEROL (VIT D3) 1,000 UNIT (25 MCG) TABLET PO SCH (09:52)
[2020-06-11] MEDS: CYANOCOBALAMIN 1,000 MCG TABLET (FP) PO SCH (09:53)
[2020-06-11 12:24] VITALS: BP 126/74
== END 2020-06-11 14:20 | DRG 481 ==
LOC: JER 13:29 → JERBED 19:10 → J6S 06-07 01:44
PROVIDERS: ADMIT Internal Medicine; ATTEND Nurse Practitioner Family
PROC: 0QH704Z Insertion of Internal Fixation Device into Left Upper Femur, Open Approach (ICD-10-PCS; principal; 2020-06-08 14:30)
PROC: 30233N1 Transfusion of Nonautologous Red Blood Cells into Peripheral Vein, Percutaneous Approach (ICD-10-PCS; 2020-06-10)
DX: S72.142A Displaced intertrochanteric fracture of left femur, initial encounter for closed fracture (principal); D62 Acute posthemorrhagic anemia; E11.9 Type 2 diabetes mellitus without complications; I10 Essential (primary) hypertension; I35.0 Nonrheumatic aortic (valve) stenosis; E78.5 Hyperlipidemia, unspecified; W19.XXXA Unspecified fall, initial encounter; Y93.9 Activity, unspecified; Y92.89 Other specified places as the place of occurrence of the external cause; Y99.9 Unspecified external cause status
CPT/HCPCS: 36415; 36430; 71045-TC-FY; 72170-TC-FY; 72192-TC; 73552-TC-LT-FY; 76000-TC-FY; 80048; 80053; 82962; 83036; 83735; 83880; 84100; 85025; 85027; 85610; 85730; 86850; 86900; 86901; 86922; 93005; 93010; 94010; 94760; 97116-GP; 97162-GP; 99285-25; C9803; J0131; P9058; U0003